=== PATIENT | female | born 1975 | race Caucasian/White ===

== ENCOUNTER → 2022-03-04 | Day surgery (SDC) | payer BC ==
[~2022-03-04] MED LIST: BUPROPION XL150 MG PO; HYDROCODONE-AC1 EAC1 PO; LEVOTHYROXINE75 MCG PO; METHOCARBAMOL500 MG PO; MIRALAX17 GM PO; PREGABALIN50 MG PO; PROTONIX 40 MG40 M1 PO; ROPINIROLE HCL1 MG PO
== END | disposition home or self-care (01) ==
LOC: OR 09:03
DX: K59.00 Constipation, unspecified (principal); K31.9 Disease of stomach and duodenum, unspecified; K29.50 Unspecified chronic gastritis without bleeding; K21.00 Gastro-esophageal reflux disease with esophagitis, without bleeding; K44.9 Diaphragmatic hernia without obstruction or gangrene; K64.0 First degree hemorrhoids; E66.01 Morbid (severe) obesity due to excess calories; E03.9 Hypothyroidism, unspecified; Z80.0 Family history of malignant neoplasm of digestive organs; Z68.38 Body mass index [BMI] 38.0-38.9, adult
CPT/HCPCS: J2704; J7040